=== PATIENT | male | born 1995 | race African-American/Black ===

== ENCOUNTER 2019-07-18 22:31 | Emergency (ER) | payer BC ==
[~2019-07-18] VITALS: Ht 170.2 cm; Wt 79.4 kg
[2019-07-18 22:38] VITALS: Ht 170.2 cm; Wt 79.4 kg
[2019-07-19 00:15] VITALS: BP 123/76
== END 2019-07-19 00:15 | disposition home or self-care (01) ==
LOC: ED 22:31
DX: S46.012A Strain of muscle(s) and tendon(s) of the rotator cuff of left shoulder, initial encounter (principal); F15.10 Other stimulant abuse, uncomplicated; Y04.8XXA Assault by other bodily force, initial encounter; Y93.89 Activity, other specified; Y92.89 Other specified places as the place of occurrence of the external cause; Y99.8 Other external cause status
CPT/HCPCS: Q0092

== ENCOUNTER 2019-07-25 12:45 | Inpatient (IN) | payer BC ==
[~2019-07-25] VITALS: Ht 175.3 cm; Wt 77.1 kg
[2019-07-25 13:06] LABS: BASOPHIL % 0.4 % (0-2); PLATELET COUNT 191 x10^3mcL (130-400); RED CELL DISTRIBUTION WIDTH 13.3 % (11.5-14.5)
[2019-07-25 13:20] LABS: CARBON DIOXIDE 31.6 mmol/L (21-32); CHLORIDE SERUM 102 mmol/L (98-107); CREATININE SERUM 1.2 mg/dL (0.7-1.3); GFR1 > 60 mL/min; GLUCOSE SERUM 168 mg/dL (74-106); POTASSIUM SERUM 3.8 mmol/L (3.5-5.1); SODIUM SERUM 139 mmol/L (136-145)
[2019-07-25 13:32] LABS: ALBUMIN 3.6 g/dL (3.4-5.0); ALKALINE PHOSPHATASE 67 U/L (46-116); ALT/SGPT 38 U/L (16-63); AST/SGOT 19 U/L (15-37); BILIRUBIN TOTAL 0.6 mg/dL (0.20-1.00); T4(THYROXINE) 5.9 ug/dL (4.7-13.3)
[2019-07-25 16:05] LABS: AMPHETAMINE QUAL UR POSITIVE (See below)
[2019-07-25 20:17] LABS: microscopic required? NO
[2019-07-25 20:23] LABS: urine erythrocyte NEGATIVE (NEGATIVE)
[2019-07-25 20:59] VITALS: BP 102/55
[2019-07-26 05:40] VITALS: BP 110/54
[2019-07-26 08:33] VITALS: BP 105/59
[2019-07-26 12:45] VITALS: BP 115/59
[2019-07-26 13:21] VITALS: Ht 175.3 cm; Wt 77.1 kg
[2019-07-26] MEDS ORDERED: SEROQUEL50 M1 PO (15:26)
[2019-07-26 16:50] VITALS: BP 111/56
[2019-07-26 20:37] VITALS: BP 97/46
[2019-07-27 05:50] VITALS: BP 101/58
[2019-07-27 06:50] LABS: BASOPHIL % 0.5 % (0-2); PLATELET COUNT 179 x10^3mcL (130-400); RED CELL DISTRIBUTION WIDTH 13.8 % (11.5-14.5)
[2019-07-27 07:03] LABS: CALCIUM 8.6 mg/dL (8.5-10.1); CARBON DIOXIDE 28.2 mmol/L (21-32); CHLORIDE SERUM 107 mmol/L (98-107); CREATININE SERUM 0.7 mg/dL (0.7-1.3); GFR1 > 60 mL/min; GLUCOSE SERUM 94 mg/dL (74-106); MAGNESIUM 1.9 mg/dL (1.8-2.4); PHOSPHOROUS 3.2 mg/dL (2.5-4.9); POTASSIUM SERUM 3.9 mmol/L (3.5-5.1); SODIUM SERUM 141 mmol/L (136-145)
[2019-07-27 08:41] VITALS: BP 99/58
[2019-07-27 11:47] VITALS: BP 99/58
[2019-07-27 12:55] VITALS: BP 106/49
== END 2019-07-27 13:36 | disposition home or self-care (01) | DRG 917 ==
LOC: ED 12:45 → DU 19:07 → MU 19:07 → DU 20:48 → MU 07-26 10:17
PROVIDERS: Emergency Medicine; ADMIT Family Medicine
DX: T43.591A Poisoning by other antipsychotics and neuroleptics, accidental (unintentional), initial encounter (principal); G92 Toxic encephalopathy; I10 Essential (primary) hypertension; F20.9 Schizophrenia, unspecified; F15.10 Other stimulant abuse, uncomplicated; F14.10 Cocaine abuse, uncomplicated; G47.00 Insomnia, unspecified; Z68.25 Body mass index [BMI] 25.0-25.9, adult; Y92.009 Unspecified place in unspecified non-institutional (private) residence as the place of occurrence of the external cause
CPT/HCPCS: 90658; 90732; G0378; G0480; J7030